=== PATIENT | male | born 1990 | race Caucasian/White ===

== ENCOUNTER 2017-02-23 20:00 | Emergency (ER) | payer SELFPAY ==
--- NOTE | 2017-02-23 23:17 | ED ---
Laceration/Wound HPI - HPI Summary HPI Summary: 26M presents with laceration of left index finger with knife. He was cutting veggies. He refused a tetanus. bleeding is controlled at this time. has full ROM of fingers. denies any numbness or tingling. he denies any foreign body. - History of Current Complaint Stated Complaint: FINGER LAC Time Seen by Provider: 02/23/17 23:01 Pain Intensity: 4 - Allergy/Home Medications Allergies/Adverse Reactions: Allergies Allergy/AdvReac Type Severity Reaction Status Date / Time Ibuprofen Allergy Anaphylatic Verified 03/26/15 11:20 Shock PMH/Surg Hx/FS Hx/Imm Hx Endocrine/Hematology History: Denies: Hx Anticoagulant Therapy Cardiovascular History: Denies: Hx Hypertension Infectious Disease History: No Infectious Disease History: Denies: Traveled Outside the [place] in Last 30 Days - Family History Known Family History: Negative: Cardiac Disease - Social History Alcohol Use: Rare Substance Use Type: Reports: None Smoking Status (MU): Former Smoker Review of Systems Negative: Fever Negative: Chest Pain Negative: Shortness Of Breath Positive: Other - left index finger lac All Other Systems Reviewed And Are Negative: Yes Physical Exam Triage Information Reviewed: Yes Vital Signs On Initial Exam: Initial Vitals Temp Pulse Resp BP Pulse Ox 97.8 F 80 20 155/89 100 02/23/17 20:09 02/23/17 20:09 02/23/17 20:09 02/23/17 20:09 02/23/17 20:09 Vital Signs Reviewed: Yes Appearance: Positive: Well-Appearing Skin: Positive: Warm, Dry, Other - 3cm half rankin like laceration of pad of DIP of left index finger Head/Face: Positive: Normal Head/Face Inspection Eyes: Positive: Normal, Conjunctiva Clear Respiratory/Lung Sounds: Positive: Clear to Auscultation, Breath Sounds Present Cardiovascular: Positive: Normal, RRR Musculoskeletal: Positive: Strength/ROM Intact - left index finger, Other - capillary refill<2 secs, sensation grossly intact Procedures - Laceration/Wound Repair 1 Location: Other - left index finger Description: Irregular Anesthesia: Digital, 1.0% Length, Depth and Shape: 3cm Betadine Prep?: Yes Irrigated w/ Saline (ccs): 300 Closure: Single Layer Suture Type: Prolene - 4-0 Number of Sutures: 5 Diagnostics - Vital Signs Vital Signs Temp Pulse Resp BP Pulse Ox 02/23/17 22:42 61 100 02/23/17 22:40 125/88 02/23/17 22:39 97.4 F 58 16 125/88 100 02/23/17 20:09 97.8 F 80 20 155/89 100 - Laboratory Lab Statement: Any lab studies that have been ordered have been reviewed, and results considered in the medical decision making process. Laceration Repair Course/Dx - Course Course Of Treatment: 26M presents with laceration of left index finger with knife. He was cutting veggies. He refused a tetanus. bleeding is controlled at this time. has full ROM of fingers. denies any numbness or tingling. he denies any foreign body. placed 5 sutures. patient understands and agrees with plan. - Differential Dx Differental Diagnoses: Abrasion, Avulsion, Laceration - Clinical Impression Provider Diagnoses: Laceration of left index finger Discharge - Discharge Plan Condition: Good Disposition: HOME Patient Education Materials: Care For Your Stitches (ED) Referrals: [facility] [place] [facility]YSICIAN REFERRAL [Outside] Additional Instructions: Take Tylenol or ibuprofen for pain Keep area clean and dry for 48 hours Return to ED or primary in 10-14 days to have sutures removed Return to ED if develop signs of infection such as fever, spreading redness, or pus.
[2017-02-23 23:46] VITALS: BP 134/52
== END 2017-02-23 23:46 | disposition home or self-care (01) ==
LOC: ED 20:00
DX: S61.211A Laceration without foreign body of left index finger without damage to nail, initial encounter (principal); W26.0XXA Contact with knife, initial encounter; Y93.9 Activity, unspecified; Y92.89 Other specified places as the place of occurrence of the external cause; Z87.891 Personal history of nicotine dependence
CPT/HCPCS: 12002; 99282

== ENCOUNTER 2019-01-10 08:51 | Emergency (ER) | payer SELFPAY ==
[2019-01-10 09:11] VITALS: BP 134/78
--- NOTE | 2019-01-10 09:20 | ED ---
Lower Extremity - HPI Summary HPI Summary: Patient is a 21-year-old male who presents to the urgent care with a chief complaint of having pain in the left thigh going down to the left knee. 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 He is able to ambulate and bear weight. The pain is only at movement. He does not have any pain in the calf, or ankle or foot. He has no other complaints. He denies any swelling or redness in the lower extremity. - History of Current Complaint Chief Complaint: UCLowerExtremity Stated Complaint: LT LEG PAIN Time Seen by Provider: 01/10/19 09:10 Hx Obtained From: Patient Onset of Pain: Immediate Severity Initially: Mild Severity Currently: Severe Pain Intensity: 9 - Allergies/Home Medications Allergies/Adverse Reactions: Allergies Allergy/AdvReac Type Severity Reaction Status Date / Time ibuprofen Allergy Severe Anaphylatic Verified 01/10/19 09:13 Shock PMH/Surg Hx/FS Hx/Imm Hx Previously Healthy: Yes Endocrine/Hematology History: Denies: Hx Anticoagulant Therapy, Hx Diabetes, Hx Thyroid Disease Cardiovascular History: Denies: Hx Hypertension Respiratory History: Denies: Hx Asthma, Hx Chronic Obstructive Pulmonary Disease (COPD) GI History: Denies: Hx Ulcer - Surgical History Surgical History: None Infectious Disease History: No Infectious Disease History: Denies: Hx Hepatitis, Hx Human Immunodeficiency Virus (HIV), Traveled Outside the [place] in Last 30 Days - Family History Known Family History: Positive: Non-Contributory Negative: Cardiac Disease - Social History Alcohol Use: None 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 GENERAL: Patient is a well developed and nourished male who is lying comfortably in the stretcher. Patient is not in any acute respiratory distress. HEAD AND FACE: No signs of trauma. No ecchymosis, hematomas or skull depressions. No sinus tenderness. EYES: PERRLA, EOMI x 2, No injected conjunctiva, no nystagmus. EARS: Hearing grossly intact. Ear canals and tympanic membranes are within normal limits. MOUTH: Oropharynx within normal limits. NECK: Supple, trachea is midline, no adenopathy, no JVD, no carotid bruit, no c- spine tenderness, neck with full ROM. CHEST: Symmetric, no tenderness at palpation LUNGS: Clear to auscultation bilaterally. No wheezing or crackles. CVS: Regular rate and rhythm, S1 and S2 present, no murmurs or gallops appreciated. ABDOMEN: Soft, non-tender. No signs of distention. No rebound no guarding, and no masses palpated. Bowel sounds are normal. EXTREMITIES: FROM in all major joints, no edema, no cyanosis or clubbing in the left lower extremity. There is no calf tenderness, no erythema, no deformity, no hematomas. NEURO: Alert and oriented x 3. No acute neurological deficits. Speech is normal and follows commands. There is no pain at passive movements. This pain when he extends the knee. SKIN: Dry and warm Triage Information Reviewed: Yes Vital Signs On Initial Exam: Initial Vitals Temp Pulse Resp BP Pulse Ox 98.3 F 76 18 134/78 99 01/10/19 09:06 01/10/19 09:06 01/10/19 09:06 01/10/19 09:06 01/10/19 09:06 Vital Signs Reviewed: Yes Diagnostics - Vital Signs Vital Signs Temp Pulse Resp BP Pulse Ox 01/10/19 09:06 98.3 F 76 18 134/78 99 - Laboratory Lab Statement: Any lab studies that have been ordered have been reviewed, and results considered in the medical decision making process. Lower Extremity Course/Dx - Course Assessment/Plan: I believe that the patient has a muscular pain. The patient has full range of motion is able to bear weight therefore at this point I dont see the need for x-rays. I discussed the findings with the patient and the need to apply ice intermittent with heat as well as pain medications. The patient reports that he is unable to take ibuprofen due to anaphylactic reactions. Therefore the patient will be given a prescription for Nabb for 10 days. He is hemodynamically stable alert and oriented 3. He was given instructions to return to the urgent care or the emergency room if the symptoms do not improve or gets worse. He understands and agrees. - Diagnoses Provider Diagnoses: Musculoskeletal pain Discharge - Sign-Out/Discharge Documenting (check all that apply): Patient Departure All imaging exams completed and their final reports reviewed: No Studies - Discharge Plan Condition: Stable Disposition: HOME Prescriptions: HYDROcodone/ACETAMIN 5-325 MG* [Nabb 5-325 TAB*] 1 tab PO Q6H PRN #10 tab MDD 4 PRN Reason: Pain Patient Education Materials: Leg Pain (ED) Referrals: [facility] PHYSICIAN REFERRAL [Outside] No Primary Care Phys,NOPCP [Primary Care Provider] - Additional Instructions: Take medications as instructed Increase your fluid intake F/U with PCP in the next 2-3 days Return to the UC if symptoms worsen - Billing Disposition and Condition Condition: STABLE Disposition: Home
== END 2019-01-10 09:30 | disposition home or self-care (01) ==
LOC: UCEAST 08:51
DX: M79.605 Pain in left leg (principal); F17.210 Nicotine dependence, cigarettes, uncomplicated
CPT/HCPCS: 99212; G0463